=== PATIENT | female | born 1990 | race Caucasian/White ===

== ENCOUNTER 2017-02-25 15:36 | Emergency (ER) | payer OTHER ==
[~2017-02-25] VITALS: Ht 160 cm; Wt 61.7 kg
[2017-02-25] MEDS ORDERED: AZITHROMYCIN 250 MG TAB PO ONE (17:30)
[2017-02-25] MEDS ORDERED: cefTRIAXone SOD 250 MG VIAL (J0696) IM ONE (17:30)
[2017-02-25] MEDS ORDERED: KEFL500C17 PO (17:31)
[2017-02-25 17:59] VITALS: BP 110/59
== END 2017-02-25 18:06 | disposition home or self-care (01) ==
LOC: M ED 15:36
DX: N76.0 Acute vaginitis (principal); F84.0 Autistic disorder
CPT/HCPCS: 87210; 87252; 87491; 87591; 96372; 99282; J0696

== ENCOUNTER 2017-04-28 14:42 | Emergency (ER) | payer OTHER ==
[~2017-04-28] VITALS: Ht 160 cm; Wt 54.5 kg
[~2017-04-28 14:42] MED LIST: KEFL500C17 PO
[2017-04-28] MEDS ORDERED: VITATAB11 PO (15:00)
[2017-04-28] MEDS ORDERED: FOLI800C PO (15:00)
[2017-04-28] MEDS ORDERED: [UNRECOGNIZED DRUG - CODE] PO (15:00)
[2017-04-28] MEDS ORDERED: MACR100C43 PO (17:11)
[2017-04-28] MEDS ORDERED: 3 DA0.1C EC (17:11)
[2017-04-28 17:20] VITALS: BP 122/64
== END 2017-04-28 17:24 | disposition home or self-care (01) ==
LOC: M ED 14:42
DX: O23.41 Unspecified infection of urinary tract in pregnancy, first trimester (principal); B37.3 Candidiasis of vulva and vagina; Z79.899 Other long term (current) drug therapy; Z3A.01 Less than 8 weeks gestation of pregnancy